=== PATIENT | male | born 1955 ===

== ENCOUNTER 2017-10-10 20:42 | Emergency (ER) | payer OTHER ==
[~2017-10-10] VITALS: Ht 190.5 cm; Wt 108.0 kg
[2017-10-11] MEDS ORDERED: PEPCID40 MG PO (00:39)
== END 2017-10-11 00:59 | disposition home or self-care (01) ==
LOC: ER 20:42
DX: M62.838 Other muscle spasm (principal); R07.89 Other chest pain